=== PATIENT | female | born 1995 | race Two or more races ===

== ENCOUNTER 2022-01-25 09:35 | Outpatient (CLI) | payer OTHER | END 2022-01-26 16:48 | disposition home or self-care (01) | LOC: OBS/DEL 09:35 | PROVIDERS: ATTEND Obstetrics & Gynecology | DX: K81.0 Acute cholecystitis (principal); O99.612 Diseases of the digestive system complicating pregnancy, second trimester; Z3A.19 19 weeks gestation of pregnancy ==

== ENCOUNTER → 2022-02-01 | Outpatient (CLI) | payer OTHER | END | disposition left against medical advice (07) | LOC: OBS/DEL 22:01 | PROVIDERS: ATTEND Obstetrics & Gynecology | DX: O26.892 Other specified pregnancy related conditions, second trimester (principal); Z3A.21 21 weeks gestation of pregnancy; N93.0 Postcoital and contact bleeding ==